=== PATIENT | female | born 1935 | race Caucasian/White ===

== ENCOUNTER 2020-02-10 16:31 | Emergency (ER) | payer MEDICARE, SELFPAY ==
[~2020-02-10] VITALS: Ht 154.9 cm; Wt 46.3 kg
[~2020-02-10 16:31] MED LIST: AMLO5TAB6 PO; ATOR10TA PO; CLOP75TA55 PO; METO50TA99 PO; OLAN2.5T40 PO; OMEP20TC12 PO; SITA25TA3 PO
[2020-02-10 16:38] VITALS: BP 169/75
--- NOTE | 2020-02-10 16:47 | NUR ---
84 YO FEMALE O CONSTIPATION WITH POSIBLE IMPACTION. LAST BM WAS TUESDAY. PT HAS NO PAIN WHEN HAVING A BM, NO BLOOD IN STOOL. PMH: DEMENTIA, HTN, DM, HEART DISEASE AND HYPERLIPIDEMIA
--- NOTE | 2020-02-10 16:59 | NUR ---
Female Cigarette Book Maker accompanied female patient for Rectal Exam.
[2020-02-10] MEDS ORDERED: SODIUM PHOSPHATE 118 ML ENEM RC ONE (17:05)
[2020-02-10 17:48] VITALS: BP 169/75
--- NOTE | 2020-02-10 17:48 | NUR ---
Patient discharged with v/s stable. Written and verbal after care instructions given and explained. Patient alert, oriented and verbalized understanding of instructions. Ambulatory with steady gait. All questions addressed prior to discharge. ID band removed. Patient advised to follow up with PMD. Rx of DUCOLOX given. Patient educated on indication of medication including possible reaction and side effects. Opportunity to ask questions provided and answered.
== END 2020-02-10 17:48 | disposition home or self-care (01) ==
LOC: MED 16:31
DX: K59.00 Constipation, unspecified (principal); E11.9 Type 2 diabetes mellitus without complications; I11.9 Hypertensive heart disease without heart failure; F03.90 Unspecified dementia, unspecified severity, without behavioral disturbance, psychotic disturbance, mood disturbance, and anxiety; E78.00 Pure hypercholesterolemia, unspecified; Z88.0 Allergy status to penicillin; Z88.6 Allergy status to analgesic agent; Z79.899 Other long term (current) drug therapy
CPT/HCPCS: 99284